=== PATIENT | male | born 1955 | race Caucasian/White ===

== ENCOUNTER 2019-11-20 08:04 | Outpatient (CLI) | payer OTHER ==
--- NOTE | 2019-11-20 10:12 | MRI ---
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 20 cc of MultiHance was utilized for the examination. The examination was reviewed on a separate [employer] 3-D workstation for multiplanar metric evaluation. FINDINGS: Prostate size: The prostate measured 5.6 x 4.5 x 4.3cm. 50.49 cc. Peripheral zone: No area of restricted diffusion is seen within the peripheral zone. There are areas of linear and wavy T2 intermediate to hypointense signal seen within the peripheral zone of the prostate gland. Small wedgelike region of intermediate to low signal intensity is seen involving the lateral left prostatic apex without associated restricted diffusion. Mild increased enhancement is seen on the dynamic post contrast images within this region. Central zone: No suspicious signal abnormality or focal lesion. Neural vasculature: No evidence of neurovascular invasion Regional lymphadenopathy: None Dynamic contrast enhancement: Negative. Osseous structures: No suspicious osseous lesion is identified. Additional findings: None.. IMPRESSION: 1. PIRADS 2- Low (clinically significant cancer is unlikely to be present.) 2. Small wedgelike region of intermediate to low T2 signal intensity, within the lateral left prostat ic apex, with some increased enhancement can be seen with prostatitis. There are additional areas of more thin linear and weblike hypodensities within the prostate gland more typical of prostatitis. No overt restricted diffusion is noted within this region to suggest clinically significant malignancy. Recommend follow-up MR of the pelvis with and without contrast in one year to document st ability or resolution.
[2019-11-20] MEDS ORDERED: Magnevist 469MG/ML 20 ML VIAL ONE (14:39)
== END 2019-11-20 08:05 | disposition home or self-care (01) ==
LOC: TBSIIMAG 08:04
PROVIDERS: ATTEND Urology
DX: N42.32 Atypical small acinar proliferation of prostate (principal)
CPT/HCPCS: 72197; 82565; A9579